=== PATIENT | female | born 1975 | race Caucasian/White ===

== ENCOUNTER → 2022-02-23 11:45 | Outpatient (BNVA) | payer OTHER, SELFPAY | PROVIDERS: Family Provider Family Medicine; Visit Provider Family Medicine | DX: Z00.00 Encounter for general adult medical examination without abnormal findings (principal); R06.00 Dyspnea, unspecified; L01.00 Impetigo, unspecified; Z86.39 Personal history of other endocrine, nutritional and metabolic disease; Z98.890 Other specified postprocedural states | CPT/HCPCS: 80053; 80061; 83036 ==

== ENCOUNTER → 2023-01-29 12:04 | Outpatient (BNVA) | payer OTHER, SELFPAY | PROVIDERS: Family Provider Family Medicine; PCP Family Medicine; Visit Provider Family Medicine | DX: Z00.00 Encounter for general adult medical examination without abnormal findings (principal); R06.00 Dyspnea, unspecified; Z13.6 Encounter for screening for cardiovascular disorders | CPT/HCPCS: 80053; 80061; 83036 ==

== ENCOUNTER → 2024-03-13 11:47 | Outpatient (BNVA) | payer OTHER, SELFPAY | PROVIDERS: Family Provider Family Medicine; PCP Family Medicine; Visit Provider Family Medicine | DX: Z00.00 Encounter for general adult medical examination without abnormal findings (principal) | CPT/HCPCS: 80053; 80061; 85025 ==

== ENCOUNTER → 2025-02-05 10:51 | Outpatient (BNVA) | payer BC, SELFPAY | PROVIDERS: Family Provider Family Medicine; PCP Family Medicine; Visit Provider Family Medicine | DX: Z00.00 Encounter for general adult medical examination without abnormal findings (principal); E03.9 Hypothyroidism, unspecified | CPT/HCPCS: 80053; 80061; 82607; 84443; 85025 ==